=== PATIENT | female | born 1990 | race Caucasian/White ===

== ENCOUNTER 2018-08-01 22:56 | Emergency (ER) | payer MEDICAID, OTHER ==
[~2018-08-01] VITALS: Ht 154.9 cm; Wt 90.7 kg
[2018-08-01 23:30] VITALS: BP 145/96
--- NOTE | 2018-08-02 01:03 | NUR ---
Patient discharged to home in stable condition. Written and verbal after care instructions given. Patient verbalizes understanding of instruction.
== END 2018-08-02 01:13 | disposition home or self-care (01) ==
LOC: ER 22:56
DX: L02.415 Cutaneous abscess of right lower limb (principal); F15.10 Other stimulant abuse, uncomplicated

== ENCOUNTER 2018-09-03 18:55 | Emergency (ER) | payer MEDICAID, OTHER ==
[~2018-09-03] VITALS: Ht 152.4 cm; Wt 81.6 kg
--- NOTE | 2018-09-03 20:03 | NUR ---
ESE KELLEY AT THE BED SIDE
--- NOTE | 2018-09-03 20:11 | NUR ---
BIB FAMILY FOR C/O L UNDERARM ABSCESS. NO OPENING NOTED. NO DRANAGE. DENIED PAIN AT THIS TIME. VSS. WILL CONT TO MONITOR ,
[2018-09-03] MEDS ORDERED: LIDOCAINE 1%-EPI 1:100,000 20 ML VIAL ONE (20:28)
[2018-09-03] MEDS ORDERED: LIDOCAINE 1%-EPI 1:100,000 20 ML VIAL TP ONE (20:30)
[2018-09-03] MEDS ORDERED: BACI/NEOM/POLY B OINT PKT 1 UDPKT PACKET TP ONE (20:30)
[2018-09-03] MEDS ORDERED: CEPHALEXIN MONOHYDRATE 500 MG CAPSULE PO ONE ×2 (21:21→21:30)
--- NOTE | 2018-09-03 21:30 | NUR ---
S/P I&D BY ESE KELLEY W/ NO COMPLICATIONS. NO BLEEDING. NO DRAINAGE, SITE COVERED ORDERED. REPORTED MINIMAL PAIN. Patient discharged to home in stable condition. RX AND Written and verbal after care instructions given. Patient verbalizes understanding of instruction.
[2018-09-03 22:05] VITALS: BP 147/78
== END 2018-09-03 21:30 | disposition home or self-care (01) ==
LOC: ER 19:03
DX: L02.412 Cutaneous abscess of left axilla (principal); L03.112 Cellulitis of left axilla
CPT/HCPCS: 10060; 99283; A6403; J3490